=== PATIENT | male | born 1960 | race Hispanic/Latino ===

== ENCOUNTER 2017-10-04 07:28 | Day surgery (SDC) | payer BC ==
[2017-09-22 12:54] VITALS: BMI 27.1
[2017-10-04] MEDS ORDERED: Propofol 10 mg/ml Inj (20 ML) ONE ×2 (08:54→09:06)
[2017-10-04] MEDS ORDERED: Sodium Chloride 0.9% 1,000 ML IV SCH (09:30)
[2017-10-04 10:18] VITALS: BP 138/76; PULSE 59; RESP 14; TEMP 97.7; O2SAT 100
== END 2017-10-04 11:17 | disposition home or self-care (01) ==
LOC: ENDO 07:28
PROVIDERS: ATTEND Internal Medicine
DX: D12.3 Benign neoplasm of transverse colon (principal); K57.30 Diverticulosis of large intestine without perforation or abscess without bleeding; K64.8 Other hemorrhoids; I10 Essential (primary) hypertension; I25.10 Atherosclerotic heart disease of native coronary artery without angina pectoris; E78.00 Pure hypercholesterolemia, unspecified; R10.9 Unspecified abdominal pain; Z87.442 Personal history of urinary calculi; Z83.71 Family history of colonic polyps
CPT/HCPCS: 45380; 88305; J2704; J7040 ×2